=== PATIENT | male | born 1940 | race Caucasian/White ===

== ENCOUNTER 2016-05-02 12:37 | Day surgery (SDC) | payer OTHER ==
[~2016-05-02] VITALS: Ht 193 cm; Wt 104.3 kg
[~2016-05-02 12:37] MED LIST: ADULT LOW DOSE81 M1; ALLEGRA ALLERG180 MG PO; B12 HEALTH1000 MCG/1 SC; CARDIZEM CD,CA240 M1 PO; CARDIZEM CD300 MG PO; CARTIA XT300 MG PO; CENTRUM SILVER1 EAC3 PO; CYANOCOBAL1000 MCG/2 IM; FIBER500 MG PO; FLONASE ALLERG9.9 ML BOTH NARES; FLOVENT 22120 INHALA IH; FOLIC ACID1 MG PO; NASONEX17 GM NS; PERDIEM15 MG PO; POTASSIUM CHLO10 ME3 PO; PRADAXA150 MG PO; PRILOSEC20 MG PO; PROLIA60 MG/1 ML SC; PROSCAR5 MG PO; PULMICORT FLE180 MCG IH; SIMCOR PO; STOOL SOFTENER100 MG PO; SULFASALAZINE500 MG PO; SUPER B-50 COM1 EACH PO; TAMBOCOR100 MG PO; VITAMIN B-6100 MG PO; VITAMIN C1000 MG PO; VITAMIN D31000 UNIT PO; XOPENEX HF200 INHALA IH; [UNRECOGNIZED DRUG - OTHER] PO; [UNRECOGNIZED DRUG - OTHER] SC
== END 2016-05-02 15:50 | disposition home or self-care (01) ==
LOC: CATH 12:37
PROC: 5A2204Z Restoration of Cardiac Rhythm, Single (ICD-10-PCS; principal; 2016-05-02)
DX: I48.1 Persistent atrial fibrillation (principal); I47.1 Supraventricular tachycardia; I10 Essential (primary) hypertension
CPT/HCPCS: 93005

== ENCOUNTER 2016-06-11 11:41 | Day surgery (SDC) | payer OTHER ==
[~2016-06-11] VITALS: Ht 193 cm; Wt 103.9 kg
[~2016-06-11 11:41] MED LIST changes: +CARTIA XT180 MG PO; +TAMBOCOR150 MG PO
== END 2016-06-11 14:48 | disposition home or self-care (01) ==
LOC: CATH 11:41
PROC: 5A2204Z Restoration of Cardiac Rhythm, Single (ICD-10-PCS; principal; 2016-06-11)
DX: I48.91 Unspecified atrial fibrillation (principal); I47.1 Supraventricular tachycardia; I10 Essential (primary) hypertension
CPT/HCPCS: 93005